=== PATIENT | male | born 1975 | race Caucasian/White ===

== ENCOUNTER → 2019-10-02 09:16 | Outpatient (CLI) | payer BC, SELFPAY ==
--- NOTE | 2019-10-02 | DI.US.S_ITS ---
PROCEDURE: US RENAL COMPLETE INDICATIONS: CHRONIC KIDNEY DISEASE STAGE 3 TECHNIQUE: Real-time scanning was performed of the kidneys and bladder, with image documentation. COMPARISON: [facility], US, US ABDOMEN COMPLETE, 09/12/2018, 9:50. FINDINGS: Kidneys: The right kidney is not definitively identified. There is hypertrophy of the left kidney measures 16.2 cm with renal cortical thickness of 2.0 cm. Bladder: Pre-void bladder volume is 156 mL. Post-void residual is 65 mL. Pre-void images demonstrate no intraluminal masses or stones. On pre-void images, better ureteral jets are noted with color Doppler interrogation. (Of note, ureteral jets may not be detectable in up to 25% of cases due to insufficient differences in specific gravity between ureteral and bladder urine). Miscellaneous: No free pelvic fluid. IMPRESSION: 1. 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 Dictated by: Errol Julio [facility] Interpreted: Scott Singh MD on 10/02/2019 at 11:02 Approved by: Scott Singh M.D. on 10/02/2019 at 11:52
== END ==
PROVIDERS: PCP Family Medicine; Visit Provider Family Medicine
DX: N18.3 Chronic kidney disease, stage 3 (moderate) (principal); N28.81 Hypertrophy of kidney
CPT/HCPCS: 76770

== ENCOUNTER 2021-04-06 10:29 | Emergency (ER) | payer BC, SELFPAY ==
[2021-04-06] VITALS (19 sets, daily range): BP systolic 113–147; BP diastolic 72–83; PULSE 93–119; RESP 8–24; O2SAT 93–100; BMI 40.1
[2021-04-06] MEDS: methylPREDNISolone 125 MG/2 ML VIAL IV (10:41)
[2021-04-06] MEDS: diphenhydrAMINE 50 MG/ML VIAL 25 MG IV (10:41)
--- NOTE | 2021-04-06 10:46 | ED_ITS ---
HPI - Allergic Reaction General Chief complaint: Allergic Reaction Stated complaint: Multiple bee stings, hives Time Seen by Provider: 04/06/21 10:30 Source: patient and EMS Mode of arrival: EMS History of Present Illness HPI narrative: 45-year-old [employer] was trying to catch us warm of these and they ended up swimming him a stinging him 100s of times mostly around the head and neck. He has never had this happen before. He was feeling somewhat lightheaded but able to drive himself back home. Increasing swelling around the face and the lips but not feeling any wheezing, tightness in the back of his throat or tongue swelling. He does note that he had be flying into his ear that was bothering him but it did fly out. He also swallowed 1 that i stung him on the right posterior pharynx but was able to spit that out too. He was given IM epinephrine and oral Benadryl by medics and route. Related Data Allergies Allergy/AdvReac Type Severity Reaction Status Date / Time No Known Drug Allergies Allergy Verified 04/06/21 10:36 Review of Systems Review of Systems Narrative: Pertinent positive and negative findings as per HPI Remainder of review of systems is otherwise unremarkable for Constitutional: Fevers, chills, weakness ENT: No sore throat, neck pain, CV: Chest pain, palpitations, dyspnea on exertion Respiratory: Cough, wheeze, dyspnea GI: Nausea, vomiting, diarrhea, change in bowel habits, black or bloody stools : Dysuria, hematuria, flank pain MS: Muscle weakness, numbness, joint swelling or warmth Skin: Rashes, nonhealing lesions Neuro: Syncope, dizziness, tingling Exam Narrative Exam Narrative: General: Significant swelling to the face and lips but Able to give a complete and coherent history. Well-nourished well-developed HEENT: Moist mucous membranes, normal sclera with reactive pupils, right posterior pharynx with area consistent with bee sting as described Neck: No JVD, supple, multiple stings and urticarial areas posterior neck extending up into the scalp and face Respiratory: Lungs are clear to auscultation, no wheezing no rales no rhonchi. Full and symmetrical air movement Cardiac: Regular rate and rhythm no murmurs no bruits Abdomen: Soft, nontender, good bowel tones, no flank pain Skin: Significant erythematous rash over much of his upper body. Multiple bee stings over the face and neck Neurologic: Grossly neurologically intact with no obvious asymmetries or abnormalities Extremities: No trauma, well perfused Psych: Cooperative, appropriate insight and affect Initial Vital Signs Initial Vital Signs: Vital Signs Pulse Rate 119 H 04/06/21 10:30 Respiratory Rate 17 04/06/21 10:30 Blood Pressure 147/74 H 04/06/21 10:30 Pulse Oximetry 99 04/06/21 10:30 Course Orders Ordered: ED Orders 04/06/21 10:39 COVID19 -Nasal swab/Pre-Proc Stat Discontinued Medications Diphenhydramine HCl (Diphenhydramine 50 Mg/Ml Vial) 25 mg IV NOW ONE Stop: 04/06/21 10:39 Last Admin: 04/06/21 10:41 Dose: 25 mg Documented by: NICHOLAS Methylprednisolone (Methylprednisolone 125 Mg/2 Ml Vial) 125 mg IV NOW ONE Stop: 04/06/21 10:40 Last Admin: 04/06/21 10:41 Dose: 125 mg Documented by: NICHOLAS Vital Signs Vital signs: Vital Signs - 8 hr 04/06/21 10:30 04/06/21 10:34 04/06/21 10:41 Pulse Rate 119 H 118 H 112 H Respiratory Rate 17 15 11 L Blood Pressure 147/74 H 113/80 Pulse Oximetry 99 100 04/06/21 11:00 04/06/21 11:20 04/06/21 11:30 Pulse Rate 100 H 96 H 99 H Respiratory Rate 8 L 14 16 Blood Pressure 120/83 116/79 Pulse Oximetry 99 98 99 MDM - Allergic Reaction Lab Data Labs: Lab Results 04/06/21 Range/Units 10:39 SARS-CoV-2 (PCR) Negative (Negative) MDM Narrative Medical decision making narrative: 1030 45-year-old gentleman with significant number of bee stings with significant facial swelling but no obvious airway involvement. Epi subcu in the field. He is given Solu-Medrol, Pepcid and additional IV Benadryl in the emergency department 1100 clearly improving. Continuing to have some pharyngeal irritation on the right side where the bee that he got in his mouth actually stung him but no obvious oral or pharyngeal edema 1200 continued improvement with urticaria almost completely resolved aside from actual points where he was stung. Continue decreased swelling to the right side of his face and lips. Lungs remain clear.
[2021-04-06 10:59] LABS: COVID19 -Nasal RAPID Negative (Negative)
--- NOTE | 2021-04-06 11:00 | PC.NURSE ---
Pt reported that he felt like his throat was becoming more swollen. MD informed and went to the bedside to assess. Lung sounds still clear, SPO2 100%, tongue and lip swelling has not worsened and appears to be improving, hives have also improved. Will continue to closely monitor
--- NOTE | 2021-04-06 11:30 | PC.NURSE ---
stingers removed from scalp bee stings, more than 20 stingers removed
--- NOTE | 2021-04-06 12:24 | PC.NURSE ---
Pt appears to be doing well. VS stable. No additional swelling
== END 2021-04-06 15:21 | disposition home or self-care (01) ==
PROVIDERS: Emergency Provider Emergency Medicine; PCP Family Medicine
DX: T63.441A Toxic effect of venom of bees, accidental (unintentional), initial encounter (principal); L50.0 Allergic urticaria; R22.0 Localized swelling, mass and lump, head; Z20.822 Contact with and (suspected) exposure to COVID-19
CPT/HCPCS: 36415; 87635; 96374; 96375; 99284; C9803; J1200; J2930